=== PATIENT | male | born 1965 ===

== ENCOUNTER → 2018-12-02 13:30 | Outpatient (ROUT) | payer OTHER, SELFPAY ==
[2018-12-02 14:10] LABS: Body Fluid Tot Nucleated Cells 4781 /uL
[2018-12-02 14:11] LABS: Body Fluid Red Blood Cells 699 /uL
[2018-12-02 14:24] LABS: Body Fluid Appearance SLIGHTLY CLOUDY; Body Fluid Clotted? NO CLOTS PRESENT; Body Fluid Color YELLOW
[2018-12-02 15:17] LABS: Eosinophils Body Fluid 0 %; Mononuclear WBC Body Fluid 26 %; Polynuclear WBC Body Fluid 74 %
== END ==
PROVIDERS: Visit Provider Internal Medicine Rheumatology
DX: M25.462 Effusion, left knee (principal)
CPT/HCPCS: 89051